=== PATIENT | female | born 1990 | race Caucasian/White ===

== ENCOUNTER 2016-08-09 09:31 | Emergency (ER) | payer SELFPAY ==
[2016-08-09 16:10] VITALS: BP 146/58
== END 2016-08-09 16:18 | disposition left against medical advice (07) ==
LOC: ED 09:31
DX: R05 Cough (principal)

== ENCOUNTER 2016-12-22 05:57 | Inpatient (IN) | payer MEDICAID, OTHER ==
[2016-12-21 13:36] LABS: Hematocrit 38 % (35-47); Hemoglobin 12.9 g/dl (12.0-16.0); Mean Corpuscular HGB Conc 34 g/dl (31-36); Mean Corpuscular Hemoglobin 31 pg (27-31); Mean Corpuscular Volume 89 fL (80-97); Mean Platelet Volume 7 um3 (7.4-10.4); Red Blood Count 4.22 10^6/ul (4.0-5.4); Red Cell Distribution Width 14 % (10.5-15); White Blood Count 10.5 10^3/ul (3.5-10.8)
[2016-12-22] MEDS ORDERED: ceFOXitin 2 GM IVPREMIX* 2 GM/50 ML BAG IVPB ONE (07:00)
[2016-12-22] MEDS ORDERED: Sodium Citrate/Citric Acid* 15 ML UDC PO ONE (07:11)
[2016-12-22] MEDS ORDERED: Buffered Lidocaine 1% SYR 3ML* 3 ML/SYR SYRINGE INTRADERM ONE (07:11)
[2016-12-22] MEDS ORDERED: DiMENhydriNATE IV* 50 MG/ML VIAL IV PUSH PRN ×2 (07:12→09:35)
[2016-12-22] MEDS ORDERED: Ondansetron INJ* 2 MG/ML VIAL IV PRN ×2 (07:12→09:35)
[2016-12-22] MEDS ORDERED: PROCHLORPERAZINE INJ 5 MG/ML 2 ML VIAL IV PRN ×2 (07:12→09:35)
[2016-12-22] MEDS ORDERED: fentaNYL* 50 MCG/ML 2 ML VIAL (100 MCG VIAL) IV PRN (07:12)
[2016-12-22] MEDS ORDERED: Scopolamine 1.5 mg* PATCH TRANSDERM PRN ×2 (07:12→09:35)
[2016-12-22] MEDS ORDERED: Morphine PF AMP (0.5MG/ML)* 5 MG/10 ML AMP ONE (07:17)
[2016-12-22] MEDS ORDERED: fentaNYL* 50 MCG/ML 2 ML VIAL (100 MCG VIAL) ONE ×3 (07:17→09:06)
[2016-12-22] MEDS ORDERED: Sodium Citrate/Citric Acid* 15 ML UDC ONE (07:44)
[2016-12-22] MEDS ORDERED: OXYTOCIN* 10 UNITS/ML 1 ML VIAL ONE (08:25)
[2016-12-22] MEDS ORDERED: Ondansetron INJ* 2 MG/ML VIAL ONE (08:25)
[2016-12-22] MEDS ORDERED: Meperidine SYRINGE* 50 MG/ML ONE ×4 (08:25→16:34)
[2016-12-22] MEDS ORDERED: DiMENhydriNATE IV* 50 MG/ML VIAL ONE (08:52)
[2016-12-22] MEDS ORDERED: Witch Hazel PAD* JAR TOPICAL PRN (09:10)
[2016-12-22] MEDS ORDERED: Zolpidem TAB* 5 MG PO PRN (09:10)
[2016-12-22] MEDS ORDERED: Dibucaine 1% 28.35 GM TUBE PR PRN (09:10)
[2016-12-22] MEDS ORDERED: Glycerin ADULT SUPP PR PRN (09:10)
[2016-12-22] MEDS ORDERED: Acetaminophen TAB* 325 MG PO PRN (09:10)
[2016-12-22] MEDS ORDERED: Nalbuphine* 20 MG/ML 1 ML VIAL IV PRN (09:35)
[2016-12-22] MEDS ORDERED: diPHENhydraMINE IV* 50 MG/ML 1 ml VIAL (BENADRYL) IV PRN (09:35)
[2016-12-22] MEDS ORDERED: Naloxone* 0.4 MG/ML 1 ML VIAL IV PRN (09:35)
[2016-12-22] MEDS: oxyCODONE/Acetamin 5/325 MG* TAB PO PRN ×4 (11:14→22:46)
[2016-12-22] MEDS ORDERED: Ibuprofen TAB* 600 MG ONE (11:49)
[2016-12-22] MEDS: Simethicone CHEW TAB* 80 MG PO SCH ×3 (12:06→20:57)
[2016-12-22] MEDS ORDERED: HYDROmorphone* 1 MG/ML 1 ML SYR ONE ×2 (12:08→16:34)
[2016-12-22] MEDS: Nicotine PATCH 14 MG/24 HR* PATCH TRANSDERM SCH (14:06)
[2016-12-22] MEDS: Docusate CAP* 100 MG PO SCH ×2 (14:10→20:57)
[2016-12-22] MEDS: Ibuprofen TAB* 600 MG PO PRN (18:08)
[2016-12-23] MEDS ORDERED: oxyCODONE/Acetamin 5/325 MG* TAB PO PRN
[2016-12-23] MEDS: Ibuprofen TAB* 600 MG PO PRN ×5 (00:02→23:41)
--- NOTE | 2016-12-23 01:53 | OP ---
DATE OF OPERATION: 12/22/16 - ROOM #116 DATE OF : 86 SURGEON: Ernie Lewis MD. CAD ADMINISTRATOR: Brooke Mathur MD SECOND CAD ADMINISTRATOR: Ally Lindquist, bi tester. ANESTHESIOLOGIST: Vargas Molina MD ANESTHESIA: Spinal. PRE-OP DIAGNOSES: Intrauterine at 39 weeks with a prior section, who desires permanent sterilization and a repeat . POST-OP DIAGNOSES: Intrauterine at 39 weeks with a prior section, who desires permanent sterilization and a repeat . OPERATIVE PROCEDURE: Repeat low-transverse section with a right fimbriectomy and a left modified [place] tubal ligation. ESTIMATED BLOOD LOSS: 600 cc. SPECIMEN SENT TO PATHOLOGY: Right fimbria and a portion of the left fallopian tube. IV FLUIDS: She received 2800 cc of IV crystalloid fluid. URINE OUTPUT: 200 cc of clear urine. FINDINGS: Delivery of a viable male with a weight 7 pounds 2 ounces, Apgars of 9 and 9 with nuchal cord x1 over clear fluid. The anatomy, left tubal fimbria was adherent to the ovary. The ovary was within normal limits. The right tube and ovary was within normal limits. The uterus, bowel and bladder were also normal and there were no complications during this procedure. DESCRIPTION OF PROCEDURE: The patient was taken to the operating room where she was identified. She was placed on the operating table where a spinal anesthetic was obtained without difficulty. She was then placed in the supine position with a leftward tilt, prepped and draped in a normal sterile fashion. A Pfannenstiel skin incision was made with a knife and carried through the underlying layer of fascia. The fascia was then nicked in the midline and extended laterally with curved Espinoza scissors. The fascia was grasped superiorly and inferiorly with Jay clamps and dissected off sharply from the rectus muscle. The rectus muscle was in the midline bluntly. The peritoneum was then identified, grasped with pickups, entered sharply with Metzenbaum scissors, and extended superiorly, inferiorly, sharply. A bladder blade was inserted into the patient's abdomen and a bladder flap was created using Metzenbaum scissors over which the bladder blade was then reinserted. A low-transverse uterine incision was made with the knife, extended laterally with bandage scissors. The amniotic sac was ruptured. The fluid was noted to be clear. The infant's head was then grasped and delivered atraumatically. Nuchal cord x1 was reduced. The rest of the 's body was then delivered. The cord was clamped and cut and the infant was handed off to the awaiting coding quality coordinator. Cord bloods were obtained. The placenta was removed manually. The uterus was then exteriorized, cleared of all clot and debris using moist laparotomy sponges. At this point, the uterine incision was closed using 0- Polysorb suture in a running locked fashion with a second imbricating layer of 0 - Polysorb suture with good hemostasis noted at the incision site. Attention was then brought on to the patient's left fallopian tube and the fimbria on the left fallopian tube was noted to be adherent to the ovary and so, therefore I decided to do a modified [place] ligation of the left tube. The right tube and ovary was within normal limits. I was able to do a fimbriectomy as a tubal ligation. The portions of the left fallopian tube and right fimbria were sent to Pathology. At this point, the uterus was then returned to the patient's abdomen. The gutters were then cleared of all clot and debris using moist laparotomy sponges. All the sponges and instruments were removed from the patient's abdomen. The peritoneum was then closed using 3-0 Polysorb suture in a running fashion. The fascia was closed using 0-Polysorb suture in a running fashion and the skin was closed with 4- 0 Monocryl stitch in a subcuticular fashion. The patient tolerated the procedure well. Sponge, lap, and needle counts were correct x2. She was then transferred to the recovery room area in stable condition. CC: Brooke Mathur MD, [facility]* [id number]/[facility] #: [id number] [facility]me
[2016-12-23] MEDS: oxyCODONE/Acetamin 5/325 MG* TAB PO PRN ×6 (03:41→23:42)
[2016-12-23] MEDS: Nicotine PATCH 14 MG/24 HR* PATCH TRANSDERM SCH (07:10)
[2016-12-23 08:18] LABS: Hematocrit 37 % (35-47); Hemoglobin 12.5 g/dl (12.0-16.0); Mean Corpuscular HGB Conc 34 g/dl (31-36); Mean Corpuscular Hemoglobin 31 pg (27-31); Mean Corpuscular Volume 90 fL (80-97); Mean Platelet Volume 7 um3 (7.4-10.4); Red Blood Count 4.05 10^6/ul (4.0-5.4); Red Cell Distribution Width 14 % (10.5-15); White Blood Count 10.7 10^3/ul (3.5-10.8)
[2016-12-23] MEDS ORDERED: Ferrous Gluconate TAB* 324 MG TAB PO SCH (09:00)
[2016-12-23] MEDS: Simethicone CHEW TAB* 80 MG PO SCH ×4 (09:12→21:24)
[2016-12-23] MEDS: Docusate CAP* 100 MG PO SCH ×3 (09:12→21:24)
[2016-12-23] MEDS ORDERED: Varicella Virus Vaccine Live* 0.5 ML VIAL SUBCUT ONE (10:06)
[2016-12-23] MEDS ORDERED: Measles, Mumps,Rubella VACC* 0.5 ML/VIAL SUBCUT ONE (10:06)
[2016-12-24] MEDS: oxyCODONE/Acetamin 5/325 MG* TAB PO PRN ×2 (03:44→07:51)
[2016-12-24] MEDS: Ibuprofen TAB* 600 MG PO PRN (06:18)
[2016-12-24] MEDS: Docusate CAP* 100 MG PO SCH (07:51)
[2016-12-24] MEDS: Simethicone CHEW TAB* 80 MG PO SCH (07:51)
[2016-12-24 07:53] VITALS: BP 130/71
[2016-12-25] MEDS ORDERED: Scopolomine PATCH Remove* 1 NOTE MISC PATCH OFF ONE (07:12)
[2016-12-25] MEDS ORDERED: Scopolomine PATCH Remove* 1 NOTE MISC PATCH OFF PRN (09:35)
== END 2016-12-24 09:51 | disposition home or self-care (01) | DRG 540 ==
LOC: MCHOB 05:57
PROVIDERS: ADMIT Obstetrics & Gynecology; ATTEND Obstetrics & Gynecology
PROC: 0UB70ZZ Excision of Bilateral Fallopian Tubes, Open Approach (ICD-10-PCS; 2016-12-22)
PROC: 10D00Z1 Extraction of Products of Conception, Low, Open Approach (ICD-10-PCS; principal; 2016-12-22 07:45)
DX: O34.211 Maternal care for low transverse scar from previous cesarean delivery (principal); Z68.41 Body mass index [BMI] 40.0-44.9, adult; O99.334 Smoking (tobacco) complicating childbirth; F17.210 Nicotine dependence, cigarettes, uncomplicated; O69.81X0 Labor and delivery complicated by cord around neck, without compression, not applicable or unspecified; O99.214 Obesity complicating childbirth; E66.01 Morbid (severe) obesity due to excess calories; Z3A.39 39 weeks gestation of pregnancy; Z37.0 Single live birth
CPT/HCPCS: 36415; 85025; 86850; 86900; 86901; 88302; 90707; A9270-GY; J0694; J1170; J1240; J2405; J2590; J3010

== ENCOUNTER 2017-02-04 19:47 | Emergency (ER) | payer OTHER ==
[2017-02-04] MEDS ORDERED: Clindamycin CAP* 150 MG PO ONE (21:34)
--- NOTE | 2017-02-04 22:36 | ED ---
Throat Pain/Nasal Congestion - HPI Summary HPI Summary: 26F presents with left lower dental pain for a couple days. She denies any fever, SOB, chest pain, or difficulty swallowing. She is breast feeding. She does not have a dentist at this time. She is requesting a dental block. - History of Current Complaint Chief Complaint: EDDentalPain Time Seen by Provider: 02/04/17 20:40 - Allergies/Home Medications Allergies/Adverse Reactions: Allergies Allergy/AdvReac Type Severity Reaction Status Date / Time No Known Allergies Allergy Verified 12/21/16 13:24 PMH/Surg Hx/FS Hx/Imm Hx Endocrine/Hematology History: Denies: Hx Diabetes - Surgical History Surgery Procedure, Year, and Place: mar 2011, wisdom teeth out, APPY Hx Anesthesia Reactions: No Infectious Disease History: No Infectious Disease History: Denies: Traveled Outside the [place] in Last 30 Days - Family History Known Family History: Positive: Cardiac Disease - Social History Alcohol Use: None Substance Use Type: Reports: None Smoking Status (MU): Heavy Every Day Tobacco Smoker Type: Cigarettes Have You Smoked in the Last Year: Yes Review of Systems Negative: Fever Positive: Dental Pain Negative: Chest Pain Negative: Shortness Of Breath All Other Systems Reviewed And Are Negative: Yes Physical Exam Triage Information Reviewed: Yes Vital Signs On Initial Exam: Initial Vitals Temp Pulse Resp BP Pulse Ox 97.4 F 77 12 134/67 97 02/04/17 19:55 02/04/17 19:55 02/04/17 19:55 02/04/17 19:55 02/04/17 19:55 Vital Signs Reviewed: Yes Appearance: Positive: Pain Distress Skin: Positive: Warm, Dry Head/Face: Positive: Normal Head/Face Inspection Eyes: Positive: Normal, EOMI, AMANDA, Conjunctiva Clear ENT: Positive: Normal ENT inspection, Pharynx normal, TMs normal. Negative: Trismus Dental: Positive: Abscess @ - 19 Neck: Positive: Supple, Nontender, No Lymphadenopathy Respiratory/Lung Sounds: Positive: Clear to Auscultation, Breath Sounds Present Cardiovascular: Positive: Normal, RRR Procedures - Incision and Drainage Site: dental Anesthesia: Topical, Digital Instrument(s): Scalpel Diagnostics - Vital Signs Vital Signs Temp Pulse Resp BP Pulse Ox 02/04/17 19:55 97.4 F 77 12 134/67 97 - Laboratory Lab Statement: Any lab studies that have been ordered have been reviewed, and results considered in the medical decision making process. EENT Course/Dx - Course Course Of Treatment: 26F presents with left lower dental pain for a couple days. She denies any fever, SOB, chest pain, or difficulty swallowing. She is breast feeding. She does not have a dentist at this time. She is requesting a dental block which did along with attempt to drain abscess. will place on clindamycin due to allergy to PCN. patient understands and agrees with plan - Differential Diagnoses Differential Diagnoses: Dental Abscess, Dental Caries, Fractured Tooth - Diagnoses Provider Diagnoses: Dental abscess Discharge - Discharge Plan Condition: Good Disposition: HOME Prescriptions: Clindamycin CAP* [Cleocin 150 MG CAP*] 300 mg PO TID #58 cap Patient Education Materials: Dental Abscess (ED) Referrals: Mari Claire MD [Primary Care Provider] - Additional Instructions: Take antibiotic 2 tablets 3 times a day for 10 days Use Tyenlol for pain every 6 hours Follow up with dentist Return to ED if develop shortness of breath, fever, or difficulty swallowing. Images - Images Dental: 1 - abscess
[2017-02-04 23:08] VITALS: BP 134/77
== END 2017-02-04 23:08 | disposition home or self-care (01) ==
LOC: ED 19:47
DX: K04.7 Periapical abscess without sinus (principal); F17.210 Nicotine dependence, cigarettes, uncomplicated
CPT/HCPCS: 99282; A9270-GY

== ENCOUNTER 2018-01-01 18:37 | Emergency (ER) | payer BC, OTHER ==
[2018-01-01 19:42] LABS: ABS Basophils 0 10^3/ul (0-0.2); ABS Eosinophils 0.2 10^3/ul (0-0.6); ABS Lymphocytes 1.9 10^3/ul (1.0-4.8); ABS Monocytes 0.6 10^3/ul (0-0.8); ABS Neutrophils 6.3 10^3/ul (1.5-7.7); ABS Nucleated RBC 0 10^3/ul; Eosinophil % 2.1 % (0-6); Hematocrit 42 % (35-47); Lymphocyte % 21.3 % (25-47); Mean Corpuscular HGB Conc 34 g/dl (31-36); Mean Corpuscular Hemoglobin 30 pg (27-31); Mean Corpuscular Volume 90 fL (80-97); Mean Platelet Volume 7.5 um3 (7.4-10.4); Nucleated Red Blood Cells % 0; Platelet Count 223 10^3/ul (150-450); Red Blood Count 4.64 10^6/ul (4.0-5.4); Red Cell Distribution Width 14 % (10.5-15); White Blood Count 9.1 10^3/ul (3.5-10.8)
--- NOTE | 2018-01-01 19:49 | RAD ---
HISTORY: Abdominal pain COMPARISONS: None VIEWS: Frontal supine and upright views of the abdomen. FINDINGS: BOWEL: There is a nonobstructive bowel gas pattern. There is a large amount of stool within the colon. CALCULI: There are no abnormal calculi. BONES AND SOFT TISSUES: There are no osseous abnormalities. OTHER FINDINGS: The lung bases are clear. There is no subphrenic gas. IMPRESSION: NONOBSTRUCTIVE BOWEL GAS PATTERN. LARGE AMOUNT OF STOOL THROUGHOUT THE COLON.
[2018-01-01] MEDS ORDERED: Magnesium CITRATE* 300 ML BTL PO ONE (20:02)
[2018-01-01] MEDS ORDERED: Sodium Phosphate ADULT ENEMA* 118 ml bottle PR ONE (20:02)
[2018-01-01] MEDS ORDERED: Polyethylene Glycol 3350 BTL* 238 GM BTL PO ONE (20:02)
[2018-01-01] MEDS ORDERED: Ondansetron ODT TAB* 4 MG PO ONE (20:05)
[2018-01-01] MEDS ORDERED: Polyethylene Glycol 3350* 17 GM PACKET ONE (20:16)
[2018-01-01 22:09] VITALS: BP 132/75
--- NOTE | 2018-01-04 21:29 | ED ---
Tomy Peoples Angela, scribed for Burton Coles MD on 01/01/18 at 1927 . GI/ HPI - HPI Summary HPI Summary: This pt is a 27 y/o female presenting to [facility] c/o constipation for the past 6 days. Pt reports she has also had lower abdominal cramping. She notes she had 1 episode of vomiting today. Pt states decreased PO intake secondary to discomfort and pain. Pt states hx of constipation but not this long. She has taken Colace and Bisacodyl with no relief. She reports she began to have constipation problems even since she had a C- section. - History of Current Complaint Chief Complaint: EDNauseaVomitDiarrh Stated Complaint: VOMITING Hx Obtained From: Patient Onset/Duration: Started Days Ago, Atraumatic, Still Present Timing: Lasting Days Current Severity: Mild Pain Intensity: 3 Location of Pain: Other - lower abd Associated Signs and Symptoms: Positive: Nausea, Vomiting, Constipation, Abdominal Pain - lower. Negative: Fever Aggravating Factor(s): Nothing Alleviating Factor(s): Nothing - Allergy/Home Medications Allergies/Adverse Reactions: Allergies Allergy/AdvReac Type Severity Reaction Status Date / Time No Known Allergies Allergy Verified 01/01/18 18:48 PMH/Surg Hx/FS Hx/Imm Hx Endocrine/Hematology History: Denies: Hx Diabetes Cardiovascular History: Denies: Hx Hypertension - Surgical History Surgery Procedure, Year, and Place: mar 2011, wisdom teeth out. Appendectomy 2012 Hx Anesthesia Reactions: No Infectious Disease History: No Infectious Disease History: Denies: Traveled Outside the [place] in Last 30 Days - Family History Known Family History: Positive: Cardiac Disease - Social History Alcohol Use: None Substance Use Type: Reports: None Smoking Status (MU): Heavy Every Day Tobacco Smoker Type: Cigarettes Have You Smoked in the Last Year: Yes Review of Systems Negative: Fever Eyes: Negative Gastrointestinal: Other - constipation Positive: Abdominal Pain, Vomiting, Nausea Musculoskeletal: Negative Skin: Negative Neurological: Negative All Other Systems Reviewed And Are Negative: Yes Physical Exam - Summary Physical Exam Summary: VITAL SIGNS: Reviewed. GENERAL: Patient is a well-developed and nourished female who is lying comfortable in the stretcher. Patient is not in any acute respiratory distress. HEAD AND FACE: Normocephalic and atraumatic. EYES: PERRLA, EOMI x 2, No injected conjunctiva. EARS: Hearing grossly intact. Ear canals and tympanic membranes are WNL. MOUTH: Oropharynx within normal limits. NECK: Supple, trachea is midline, no adenopathy, no JVD. CHEST: Symmetric, no tenderness at palpation LUNGS: Clear to auscultation bilaterally. No wheezing or crackles. CVS: RRR, S1 and S2 present, no murmurs or gallops appreciated. ABDOMEN: Soft. Lower abdominal discomfort. No signs of distention. Positive bowel sounds. No rebound no guarding, and no masses palpated. No abdominal bruit or pulsations. RECTAL EXAM: Ronald Hughes, ED RN, was present during exam. I was able to touch a piece of the stool in the rectum but was unable to grab it as it was to high. EXTREMITIES: FROM in all major joints, no edema, no cyanosis or clubbing. NEURO: Alert and oriented x 3. No acute neurological deficits. Speech is normal. SKIN: Dry and warm Triage Information Reviewed: Yes Vital Signs On Initial Exam: Initial Vitals Temp Pulse Resp BP Pulse Ox 97.7 F 100 16 134/67 97 01/01/18 18:46 01/01/18 18:46 01/01/18 18:46 01/01/18 18:46 01/01/18 18:46 Vital Signs Reviewed: Yes Diagnostics - Vital Signs Vital Signs Temp Pulse Resp BP Pulse Ox 01/01/18 19:00 98 96 01/01/18 18:58 91 97 01/01/18 18:46 97.7 F 100 16 134/67 97 - Laboratory Lab Results: Lab Results 01/01/18 01/01/18 Range/Units 19:26 19:26 WBC 9.1 (3.5-10.8) 10^3/ul RBC 4.64 (4.0-5.4) 10^6/ul Hgb 14.0 (12.0-16.0) g/dl Hct 42 (35-47) % MCV 90 (80-97) fL MCH 30 (27-31) pg MCHC 34 (31-36) g/dl RDW 14 (10.5-15) % Plt Count 223 (150-450) 10^3/ul MPV 7.5 (7.4-10.4) um3 Neut % (Auto) 69.5 (38-83) % Lymph % (Auto) 21.3 L (25-47) % [place] % (Auto) 6.6 (0-7) % Eos % (Auto) 2.1 (0-6) % Baso % (Auto) 0.5 (0-2) % Absolute Neuts (auto) 6.3 (1.5-7.7) 10^3/ul Absolute Lymphs (auto) 1.9 (1.0-4.8) 10^3/ul Absolute Monos (auto) 0.6 (0-0.8) 10^3/ul Absolute Eos (auto) 0.2 (0-0.6) 10^3/ul Absolute Basos (auto) 0 (0-0.2) 10^3/ul Absolute Nucleated RBC 0 10^3/ul Nucleated RBC % 0 Sodium 138 L (139-145) mmol/L Potassium 3.7 (3.5-5.0) mmol/L Chloride 105 (101-111) mmol/L Carbon Dioxide 25 (22-32) mmol/L Anion Gap 8 (2-11) mmol/L BUN 7 (6-24) mg/dL Creatinine 0.61 (0.51-0.95) mg/dL Est GFR ( Amer) 149.1 (>60) Est GFR (Non-Af Amer) 116.0 (>60) BUN/Creatinine Ratio 11.5 (8-20) Glucose 98 (70-100) mg/dL Calcium 8.7 (8.6-10.3) mg/dL Total Bilirubin 0.40 (0.2-1.0) mg/dL AST 14 (13-39) U/L ALT 16 (7-52) U/L Alkaline Phosphatase 59 (34-104) U/L C-Reactive Protein 9.62 H (< 5.00) mg/L Total Protein 6.4 (6.4-8.9) g/dL Albumin 3.9 (3.2-5.2) g/dL Globulin 2.5 (2-4) g/dL Albumin/Globulin Ratio 1.6 (1-3) Lipase 15 (11.0-82.0) U/L Result Diagrams: 01/01/18 19:26 01/01/18 19:26 Lab Statement: Any lab studies that have been ordered have been reviewed, and results considered in the medical decision making process. - Radiology Abdomen XR Xray Interpretation: Positive (See Comments) - IMPRESSION: Nonobstructive bowel gas pattern. Large amount of stool throughout the colon. Dr. Coles has reviewed this radiology report. Radiology Interpretation Completed By: Ursula SANCHEZ Course/Dx - Course Assessment/Plan: This patient is a 27-year-old male who presents to the emergency room with chief complaint of having constipation for the last 6 days. Blood tests without any significant abnormality. In the ED course I did an abdominal x-ray which shows no obstruction. The patient was given MiraLAX, lactulose, magnesium citrate and a Fleet enema. The patient had a successful bowel movements and at this point the patient is feeling better. Patient will be discharged home with follow-up with primary care physician. I discussed all the findings and test results with the patient. Patient was instructed to return to the emergency room immediately if any of the symptoms return or worsens. Plan of care was discussed with the patient and understands and agrees. All questions were answered at patient satisfaction. There were no further complaints or concerns. Lung exam before discharge: CTA B/L. Good air exchange. No wheezing or crackles heard. CVS: S1 and S2 present. No murmurs appreciated. Patient is alert and oriented x 3. Patient is hemodynamically stable. Patient will be discharged home with follow up PCP in the next 2-3 days - Diagnoses Provider Diagnoses: Constipation Discharge - Sign-Out/Discharge Documenting (check all that apply): Discharge/Admit/Transfer - discharge - Discharge Plan Condition: Stable Disposition: HOME Prescriptions: Magnesium CITRATE* [Citrate of Magnesia*] 150 ml PO ONCE #1 btl Polyethylene Glycol 3350* [Miralax*] 17 gm PO DAILY #12 packet Sodium Phosphate ADULT ENEMA* [Fleet Enema*] 1 enema MS DAILY PRN #[id number] PRN Reason: Constipation Patient Education Materials: Constipation (ED) Referrals: Mari Claire MD [Primary Care Provider] - Additional Instructions: Please follow up with your primary care provider. RETURN TO THE ED FOR ANY NEW OR WORSENING SYMPTOMS. - Billing Disposition and Condition Condition: STABLE Disposition: HOME The documentation as recorded by the Tomy prakash Angela accurately reflects the service I personally performed and the decisions made by , Burton Coles MD.
== END 2018-01-01 22:08 | disposition home or self-care (01) ==
LOC: ED 18:37
DX: K59.00 Constipation, unspecified (principal); F17.210 Nicotine dependence, cigarettes, uncomplicated
CPT/HCPCS: 36415; 74019; 80053; 83690; 85025; 86140; 99282; A9270-GY